=== PATIENT | female | born 1995 | race Two or more races ===

== ENCOUNTER 2023-05-18 20:02 | Emergency (ER) | payer SELFPAY ==
[~2023-05-18] VITALS: Ht 170.2 cm; Wt 72.7 kg
[2023-05-18 21:53] LABS: COVID AG,FIA SOURCE NASAL SWAB
[2023-05-18 22:19] LABS: RAPID GROUP A STREP NEGATIVE (NEGATIVE)
[2023-05-18 22:23] LABS: SARS-COV2 (COVID) ANTIGEN,FIA Negative (Negative)
[2023-05-18 22:26] LABS: INFLUENZA TYPE A NEGATIVE FOR TYPE A (NEGATIVE); INFLUENZA TYPE B NEGATIVE FOR TYPE B (NEGATIVE)
[2023-05-18 23:40] VITALS: BP 145/63; PULSE 64; RESP 18; TEMP 98.2
== END 2023-05-18 23:55 | disposition home or self-care (01) ==
LOC: EMS 20:04
DX: R05.9 Cough, unspecified (principal); R50.9 Fever, unspecified; Z20.822 Contact with and (suspected) exposure to COVID-19
CPT/HCPCS: 71045; 87430; 87804; 93005; 99285